=== PATIENT | female | born 1960 | race Caucasian/White ===

== ENCOUNTER 2017-09-25 20:15 | Emergency (ER) | payer MEDICAID ==
[~2017-09-25] VITALS: Ht 175.3 cm; Wt 96.4 kg
[~2017-09-25 20:15] MED LIST: ASPI-515 PO; ATOR80TA PO; ESOM40CA PO; INSU100V12 SC; LISI-170 PO; NITR100C56 PO; ROPI1TAB PO
[2017-09-25 20:20] VITALS: BP 150/75
== END 2017-09-25 23:30 | disposition left against medical advice (07) ==
LOC: ED 23:24
DX: R53.1 Weakness (principal); M54.9 Dorsalgia, unspecified; R10.9 Unspecified abdominal pain; Z53.21 Procedure and treatment not carried out due to patient leaving prior to being seen by health care provider

== ENCOUNTER 2018-02-01 13:37 | Emergency (ER) | payer MEDICAID ==
[~2018-02-01] VITALS: Ht 175.3 cm; Wt 95.0 kg
[~2018-02-01 13:37] MED LIST changes: +AMLO5TAB2 PO; +LIDO700A20 TD; +LISI2.5T PO; +METH500T7 PO; +[UNRECOGNIZED DRUG - OTHER]
[2018-02-01 13:51] VITALS: BP 191/92
[2018-02-01] MEDS ORDERED: SODIUM CHLORIDE FLUSH 10ML SYR IVF ONE (14:00)
[2018-02-01] MEDS ORDERED: FAMOTIDINE 20 MG/2 ML IVP ONE (14:00)
[2018-02-01] MEDS ORDERED: FAMOTIDINE 20 MG/2 ML ONE (14:32)
[2018-02-01] MEDS ORDERED: ZIPRASIDONE 20 MG INJ IM ONE ×2 (14:32→15:00)
[2018-02-01 14:36] LABS: BASOPHILS # (AUTO) 0.04 x10^3/uL (0-0.1); BASOPHILS % (AUTO) 0 % (0-1); EOSINOPHILS # (AUTO) 0.07 x10^3/uL (0-0.4); EOSINOPHILS % (AUTO) 1 % (1-7); LYMPHOCYTES # (AUTO) 3.54 x10^3/uL (1-3.4); LYMPHOCYTES % (AUTO) 32 % (22-44); MD NO; MEAN CORPUSCULAR HEMOGLOBIN 31.7 pg (27.0-34.8); MEAN CORPUSCULAR HGB CONC 34.2 g/dL (32.4-35.8); MEAN CORPUSCULAR VOLUME 92.6 fL (80-100); MEAN PLATELET VOLUME 9.3 fL (7.4-10.4); MONOCYTES # (AUTO) 0.45 x10^3/uL (0.2-0.8); MONOCYTES % (AUTO) 4 % (2-9); NEUTROPHILS # (AUTO) 6.87 x10^3/uL (1.8-6.8); NEUTROPHILS % (AUTO) 63 % (42-75); PLATELET COUNT 313 x10^3/uL (130-400); RED BLOOD COUNT 4.84 x10^6/uL (3.82-5.3); RED CELL DISTRIBUTION WIDTH 12.6 % (9.6-15.2)
[2018-02-01 14:42] LABS: ALBUMIN 2.8 g/dL (3.4-5.0); ANION GAP 11 mmol/L (5-15); CHLORIDE 105 mmol/L (98-107)
[2018-02-01 14:45] LABS: ALANINE AMINOTRANSFERASE 25 U/L (12-78); ALKALINE PHOSPHATASE 125 U/L (45-117); BILIRUBIN,TOTAL 0.4 mg/dL (0.2-1.0); CREATININE 1.95 mg/dL (0.55-1.02); TOTAL PROTEIN 7.4 g/dL (6.4-8.2)
[2018-02-01] MEDS ORDERED: INSULIN REGULAR 100 UNITS/ML, 3ML VIAL ONE (14:51)
[2018-02-01] MEDS ORDERED: INSULIN REGULAR 100 UNITS/ML, 3ML VIAL SQ-INSULIN ONE (15:00)
[2018-02-01] MEDS ORDERED: INSULIN REGULAR 100 UNITS/ML, 3ML VIAL IVPush ONE (15:30)
[2018-02-01 16:24] LABS: MICROSCOPIC INDICATED
[2018-02-01 16:31] LABS: CULTURE INDICATED? NO
== END 2018-02-01 16:01 | disposition home or self-care (01) ==
LOC: ED 15:55
DX: R10.13 Epigastric pain (principal); J45.909 Unspecified asthma, uncomplicated; E11.42 Type 2 diabetes mellitus with diabetic polyneuropathy; I10 Essential (primary) hypertension; Z86.718 Personal history of other venous thrombosis and embolism; Z79.4 Long term (current) use of insulin
CPT/HCPCS: 36415; 71045; 74176; 80053; 81001; 83605; 83690; 85025; 93005; 96372; 96374; 96375; 99285; J3486; S0028

== ENCOUNTER 2018-03-17 18:48 | Inpatient (IN) | payer MEDICAID ==
[~2018-03-17] VITALS: Ht 175.3 cm; Wt 94.6 kg
[2018-03-17] MEDS ORDERED: SODIUM CHLORIDE 0.9% 1,000ML IVBOLUS ONE ×2 (19:30→21:00)
[2018-03-17] MEDS ORDERED: MORPHINE SULFATE 4 MG/ML, 1ML IVPush PRN (19:30)
[2018-03-17] MEDS ORDERED: ONDANSETRON 2MG/ML, 2ML IVPush ONE (19:30)
[2018-03-17] MEDS ORDERED: METOCLOPRAMIDE 5 MG/ML, 2ML IVPush ONE (19:30)
[2018-03-17 19:40] LABS: PH, VENOUS 7.376 pH (7.320-7.420)
[2018-03-17 19:50] LABS: BASOPHILS # (AUTO) 0.03 x10^3/uL (0-0.1); BASOPHILS % (AUTO) 0 % (0-1); EOSINOPHILS % (AUTO) 0 % (1-7); LYMPHOCYTES # (AUTO) 1.68 x10^3/uL (1-3.4); LYMPHOCYTES % (AUTO) 13 % (22-44); MD NO; MEAN CORPUSCULAR HEMOGLOBIN 31.7 pg (27.0-34.8); MEAN CORPUSCULAR HGB CONC 34.1 g/dL (32.4-35.8); MEAN CORPUSCULAR VOLUME 92.7 fL (80-100); MEAN PLATELET VOLUME 9.1 fL (7.4-10.4); MONOCYTES # (AUTO) 0.18 x10^3/uL (0.2-0.8); MONOCYTES % (AUTO) 1 % (2-9); NEUTROPHILS # (AUTO) 11.04 x10^3/uL (1.8-6.8); NEUTROPHILS % (AUTO) 85 % (42-75); PLATELET COUNT 380 x10^3/uL (130-400); RED BLOOD COUNT 5.25 x10^6/uL (3.82-5.3); RED CELL DISTRIBUTION WIDTH 12.9 % (9.6-15.2)
[2018-03-17] MEDS ORDERED: ONDANSETRON 2MG/ML, 2ML ONE (19:51)
[2018-03-17] MEDS ORDERED: METOCLOPRAMIDE 5 MG/ML, 2ML ONE (19:51)
[2018-03-17] MEDS ORDERED: MORPHINE SULFATE 4 MG/ML, 1ML ONE (19:52)
[2018-03-17 19:53] LABS: MICROSCOPIC INDICATED
[2018-03-17 19:54] LABS: ALBUMIN 2.9 g/dL (3.4-5.0); ANION GAP 14 mmol/L (5-15); CALCIUM 9.4 mg/dL (8.5-10.1); CHLORIDE 105 mmol/L (98-107)
[2018-03-17 19:59] LABS: ALANINE AMINOTRANSFERASE 32 U/L (12-78); ALKALINE PHOSPHATASE 121 U/L (45-117); BILIRUBIN,TOTAL 0.6 mg/dL (0.2-1.0); CREATININE 1.68 mg/dL (0.55-1.02); TOTAL PROTEIN 8.1 g/dL (6.4-8.2)
[2018-03-17 20:12] LABS: CULTURE INDICATED? YES
[2018-03-17 20:25] LABS: ACETONE, SERUM Moderate(40mg/dL) mg/dL (Negative)
[2018-03-17] MEDS ORDERED: INSULIN REGULAR 100 UNITS/ML, 3ML VIAL IVPush ONE (21:00)
[2018-03-17] MEDS ORDERED: INSULIN REGULAR 100 UNITS/ML, 3ML VIAL ONE (21:25)
[2018-03-17] MEDS: ROPINIROLE 1MG TABLET PO SCH (22:00)
[2018-03-17] MEDS ORDERED: METOCLOPRAMIDE 5 MG/ML, 2ML IVPush PRN (22:30)
[2018-03-17] MEDS ORDERED: DEXTROSE 50%, 50ML SYRINGE IVPush PRN (22:30)
[2018-03-17] MEDS ORDERED: DEXTROSE 4 GM TAB.CHEW PO PRN (22:30)
[2018-03-17] MEDS ORDERED: BISACODYL 10 MG SUPP PR PRN (22:30)
[2018-03-17] MEDS ORDERED: GLUCAGON 1 MG IM PRN (22:30)
[2018-03-17 22:38] LABS: HEMOGLOBIN A1C 10.6 % (4.2-6.3)
[2018-03-17] MEDS: CEFTRIAXONE 1,000 MG in SODIUM CHLORIDE 0.9% 50 ML IV SCH (23:57)
[2018-03-18] MEDS: HEPARIN 5,000 UNITS/ML, 1ML SQ SCH ×3 (00:29→17:10)
[2018-03-18] MEDS: AMLODIPINE 5 MG TABLET PO SCH ×3 (00:30→20:21)
[2018-03-18] MEDS: INSULIN LISPRO 100 UNITS/ML, PEN SQ-INSULIN SCH ×5 (00:30→21:34)
[2018-03-18] MEDS: SODIUM CHLORIDE FLUSH 10ML SYR IVF SCH ×3 (00:31→20:22)
[2018-03-18] MEDS: SODIUM CHLORIDE 0.9% 1,000 ML IV SCH ×5 (00:32→23:57)
[2018-03-18] MEDS: ONDANSETRON 2MG/ML, 2ML IVPush PRN ×2 (01:52→08:04)
[2018-03-18] MEDS ORDERED: INSULIN LISPRO 100 UNITS/ML, PEN SQ-INSULIN ONE (02:00)
[2018-03-18 03:55] VITALS: BP 131/80
[2018-03-18 04:25] LABS: BASOPHILS # (AUTO) 0.03 x10^3/uL (0-0.1); BASOPHILS % (AUTO) 0 % (0-1); EOSINOPHILS % (AUTO) 0 % (1-7); LYMPHOCYTES # (AUTO) 3.64 x10^3/uL (1-3.4); LYMPHOCYTES % (AUTO) 25 % (22-44); MD NO; MEAN CORPUSCULAR HEMOGLOBIN 31.6 pg (27.0-34.8); MEAN PLATELET VOLUME 8.9 fL (7.4-10.4); MONOCYTES # (AUTO) 1.13 x10^3/uL (0.2-0.8); MONOCYTES % (AUTO) 8 % (2-9); NEUTROPHILS # (AUTO) 9.59 x10^3/uL (1.8-6.8); NEUTROPHILS % (AUTO) 67 % (42-75); PLATELET COUNT 389 x10^3/uL (130-400); RED BLOOD COUNT 4.79 x10^6/uL (3.82-5.3); RED CELL DISTRIBUTION WIDTH 12.9 % (9.6-15.2)
[2018-03-18 04:35] LABS: ALANINE AMINOTRANSFERASE 25 U/L (12-78); ALBUMIN 2.5 g/dL (3.4-5.0); ANION GAP 9 mmol/L (5-15); CALCIUM 8.6 mg/dL (8.5-10.1); CHLORIDE 114 mmol/L (98-107); CREATININE 1.73 mg/dL (0.55-1.02)
[2018-03-18 04:37] LABS: ALKALINE PHOSPHATASE 99 U/L (45-117); BILIRUBIN,TOTAL 0.2 mg/dL (0.2-1.0); TOTAL PROTEIN 6.9 g/dL (6.4-8.2)
[2018-03-18 07:02] VITALS: BP 180/81
[2018-03-18 07:45] LABS: MICROSCOPIC INDICATED
[2018-03-18] MEDS ORDERED: LABETALOL 5MG/ML, 20ML IVPush PRN (08:00)
[2018-03-18] MEDS: OMEPRAZOLE 20 MG CAPSULE.DR PO SCH (08:04)
[2018-03-18 08:07] LABS: CULTURE INDICATED? YES
[2018-03-18 09:26] VITALS: BP 143/79
[2018-03-18 14:11] VITALS: BP 169/83
[2018-03-18] MEDS ORDERED: PHARMACOKINETIC MONITORING MC PRN (14:30)
[2018-03-18] MEDS ORDERED: VANCOMYCIN PER PHARMACY MC PRN (14:30)
[2018-03-18] MEDS ORDERED: VANCOMYCIN 1,700 MG in SODIUM CHLORIDE 0.9% 250 ML IV SCH (14:30)
[2018-03-18] MEDS ORDERED: PHARMACOKINETIC CONSULTATION MC ONE (14:30)
[2018-03-18 19:41] VITALS: BP 133/75
[2018-03-18] MEDS: ROPINIROLE 1MG TABLET PO SCH (20:20)
[2018-03-18] MEDS: INSULIN GLARGINE 100 UNITS/ML, PEN SQ-INSULIN SCH (21:33)
[2018-03-18] MEDS: CEFTRIAXONE 1,000 MG in SODIUM CHLORIDE 0.9% 50 ML IV SCH (23:54)
[2018-03-19] MEDS: HEPARIN 5,000 UNITS/ML, 1ML SQ SCH ×4 (00:02→23:58)
[2018-03-19 00:57] VITALS: BP 163/88
[2018-03-19 05:06] LABS: MEAN CORPUSCULAR HEMOGLOBIN 31.7 pg (27.0-34.8); MEAN CORPUSCULAR VOLUME 93.3 fL (80-100); MEAN PLATELET VOLUME 9.5 fL (7.4-10.4); PLATELET COUNT 244 x10^3/uL (130-400); RED BLOOD COUNT 3.94 x10^6/uL (3.82-5.3); RED CELL DISTRIBUTION WIDTH 12.9 % (9.6-15.2)
[2018-03-19 05:28] LABS: ANION GAP 8 mmol/L (5-15); CALCIUM 7.6 mg/dL (8.5-10.1); CHLORIDE 115 mmol/L (98-107)
[2018-03-19 05:30] LABS: CREATININE 1.17 mg/dL (0.55-1.02)
[2018-03-19 05:32] LABS: BASOPHILS # (AUTO) 0.08 x10^3/uL (0-0.1); BASOPHILS % (AUTO) 1 % (0-1); EOSINOPHILS # (AUTO) 0.17 x10^3/uL (0-0.4); EOSINOPHILS % (AUTO) 1 % (1-7); LYMPHOCYTES # (AUTO) 5.05 x10^3/uL (1-3.4); LYMPHOCYTES % (AUTO) 43 % (22-44); MD SCAN; MONOCYTES % (AUTO) 5 % (2-9); NEUTROPHILS # (AUTO) 5.96 x10^3/uL (1.8-6.8); NEUTROPHILS % (AUTO) 50 % (42-75)
[2018-03-19] MEDS: INSULIN LISPRO 100 UNITS/ML, PEN SQ-INSULIN SCH ×4 (05:40→22:23)
[2018-03-19] MEDS: SODIUM CHLORIDE 0.9% 1,000 ML IV SCH ×3 (05:40→23:58)
[2018-03-19 07:01] VITALS: BP 177/91
[2018-03-19] MEDS: SODIUM CHLORIDE FLUSH 10ML SYR IVF SCH ×2 (07:56→20:59)
[2018-03-19] MEDS: AMLODIPINE 5 MG TABLET PO SCH ×2 (08:33→20:59)
[2018-03-19] MEDS: OMEPRAZOLE 20 MG CAPSULE.DR PO SCH (08:34)
[2018-03-19] MEDS ORDERED: hydrALAzine 20 MG/ML, 1ML IV PRN (09:00)
[2018-03-19] MEDS ORDERED: GABA-826 PO (09:11)
[2018-03-19 10:17] VITALS: BP 146/84
[2018-03-19] MEDS: VANCOMYCIN 1,800 MG in SODIUM CHLORIDE 0.9% 250 ML IV SCH (12:22)
[2018-03-19 13:05] VITALS: BP 132/71
[2018-03-19] MEDS: HYDROcodone/APAP 5/325 TABLET PO PRN ×2 (16:51→23:58)
[2018-03-19 19:19] VITALS: BP 159/80
[2018-03-19] MEDS: ROPINIROLE 1MG TABLET PO SCH (20:52)
[2018-03-19] MEDS: INSULIN GLARGINE 100 UNITS/ML, PEN SQ-INSULIN SCH (22:23)
[2018-03-19] MEDS: CEFTRIAXONE 1,000 MG in SODIUM CHLORIDE 0.9% 50 ML IV SCH (23:58)
[2018-03-20 01:25] VITALS: BP 165/81
[2018-03-20] MEDS: INSULIN LISPRO 100 UNITS/ML, PEN SQ-INSULIN SCH ×4 (04:30→20:53)
[2018-03-20 05:18] LABS: ANION GAP 6 mmol/L (5-15); CALCIUM 7.7 mg/dL (8.5-10.1); CHLORIDE 114 mmol/L (98-107)
[2018-03-20 05:19] LABS: BASOPHILS # (AUTO) 0.05 x10^3/uL (0-0.1); BASOPHILS % (AUTO) 1 % (0-1); CREATININE 1.23 mg/dL (0.55-1.02); EOSINOPHILS # (AUTO) 0.14 x10^3/uL (0-0.4); EOSINOPHILS % (AUTO) 2 % (1-7); LYMPHOCYTES # (AUTO) 3.75 x10^3/uL (1-3.4); LYMPHOCYTES % (AUTO) 43 % (22-44); MD NO; MEAN CORPUSCULAR HEMOGLOBIN 31.5 pg (27.0-34.8); MEAN CORPUSCULAR VOLUME 92.8 fL (80-100); MEAN PLATELET VOLUME 9.3 fL (7.4-10.4); MONOCYTES # (AUTO) 0.57 x10^3/uL (0.2-0.8); MONOCYTES % (AUTO) 6 % (2-9); NEUTROPHILS # (AUTO) 4.31 x10^3/uL (1.8-6.8); NEUTROPHILS % (AUTO) 49 % (42-75); PLATELET COUNT 225 x10^3/uL (130-400); RED BLOOD COUNT 4.15 x10^6/uL (3.82-5.3); RED CELL DISTRIBUTION WIDTH 12.6 % (9.6-15.2)
[2018-03-20] MEDS: VANCOMYCIN 1,800 MG in SODIUM CHLORIDE 0.9% 250 ML IV SCH (06:16)
[2018-03-20 06:40] VITALS: BP 158/76
[2018-03-20] MEDS ORDERED: SODIUM CHLORIDE 0.9% 1,000 ML IV SCH (08:00)
[2018-03-20] MEDS: HEPARIN 5,000 UNITS/ML, 1ML SQ SCH ×2 (08:12→16:38)
[2018-03-20] MEDS: ZONISAMIDE 50 MG CAPSULE PO SCH (08:13)
[2018-03-20] MEDS: AMLODIPINE 5 MG TABLET PO SCH ×2 (08:14→20:18)
[2018-03-20] MEDS: OMEPRAZOLE 20 MG CAPSULE.DR PO SCH (08:14)
[2018-03-20] MEDS: SODIUM CHLORIDE 0.9% 1,000 ML IV SCH ×2 (08:15→16:39)
[2018-03-20] MEDS: SODIUM CHLORIDE FLUSH 10ML SYR IVF SCH ×2 (08:16→20:19)
[2018-03-20] MEDS: HYDROcodone/APAP 5/325 TABLET PO PRN (08:22)
[2018-03-20] MEDS ORDERED: FLUCONAZOLE 200 MG/100 ML 100 ML IV SCH ×2 (10:00)
[2018-03-20] MEDS ORDERED: LORazepam 2 MG/ML, 1ML IVPush PRN (10:00)
[2018-03-20] MEDS: POLYETHYLENE GLYCOL 17 GM PACKET PO SCH (10:00)
[2018-03-20] MEDS: OXYcodone/APAP 7.5/325MG TABLET PO PRN ×3 (11:00→20:53)
[2018-03-20] MEDS ORDERED: PHARMACY INSTRUCTION MC SCH (12:00)
[2018-03-20] MEDS: ERTAPENEM 1 GM in SODIUM CHLORIDE 0.9% 50 ML IV SCH (13:19)
[2018-03-20 14:24] VITALS: BP 158/75
[2018-03-20 19:30] VITALS: BP 170/84
[2018-03-20] MEDS: ROPINIROLE 1MG TABLET PO SCH ×2 (20:18→21:00)
[2018-03-20] MEDS: INSULIN GLARGINE 100 UNITS/ML, PEN SQ-INSULIN SCH (20:53)
[2018-03-20] MEDS: CLOTRIMAZOLE VAGINAL CRM 1%, 45GM VG SCH (20:53)
[2018-03-21] MEDS: SODIUM CHLORIDE 0.9% 1,000 ML IV SCH ×3 (00:47→23:00)
[2018-03-21] MEDS: HEPARIN 5,000 UNITS/ML, 1ML SQ SCH ×3 (00:48→17:35)
[2018-03-21 00:51] VITALS: BP 152/74
[2018-03-21] MEDS: OXYcodone/APAP 7.5/325MG TABLET PO PRN ×5 (01:00→21:59)
[2018-03-21 05:18] LABS: ANION GAP 7 mmol/L (5-15); CALCIUM 7.7 mg/dL (8.5-10.1); CHLORIDE 113 mmol/L (98-107)
[2018-03-21 05:20] LABS: CREATININE 1.36 mg/dL (0.55-1.02)
[2018-03-21] MEDS: INSULIN LISPRO 100 UNITS/ML, PEN SQ-INSULIN SCH ×4 (05:29→22:17)
[2018-03-21 08:30] VITALS: BP 146/76
[2018-03-21] MEDS: AMLODIPINE 5 MG TABLET PO SCH ×2 (08:35→21:58)
[2018-03-21] MEDS: ZONISAMIDE 50 MG CAPSULE PO SCH (08:35)
[2018-03-21] MEDS: OMEPRAZOLE 20 MG CAPSULE.DR PO SCH (08:35)
[2018-03-21] MEDS: POLYETHYLENE GLYCOL 17 GM PACKET PO SCH (08:37)
[2018-03-21] MEDS: SODIUM CHLORIDE FLUSH 10ML SYR IVF SCH ×2 (08:37→21:00)
[2018-03-21 14:30] VITALS: BP 146/78
[2018-03-21] MEDS ORDERED: LIDOCAINE-MPF 1%, 2ML ONE (15:09)
[2018-03-21] MEDS: ERTAPENEM 1 GM in SODIUM CHLORIDE 0.9% 50 ML IV SCH (17:35)
[2018-03-21 19:29] VITALS: BP 157/77
[2018-03-21] MEDS: CLOTRIMAZOLE VAGINAL CRM 1%, 45GM VG SCH (21:00)
[2018-03-21] MEDS: ROPINIROLE 1MG TABLET PO SCH (21:00)
[2018-03-21] MEDS: INSULIN GLARGINE 100 UNITS/ML, PEN SQ-INSULIN SCH (22:16)
[2018-03-22] MEDS: HEPARIN 5,000 UNITS/ML, 1ML SQ SCH ×3 (00:30→17:40)
[2018-03-22 01:56] VITALS: BP 181/75
[2018-03-22 02:26] VITALS: BP 178/74
[2018-03-22] MEDS: OXYcodone/APAP 7.5/325MG TABLET PO PRN ×4 (02:40→19:38)
[2018-03-22] MEDS: INSULIN LISPRO 100 UNITS/ML, PEN SQ-INSULIN SCH ×4 (05:19→21:12)
[2018-03-22] MEDS: SODIUM CHLORIDE 0.9% 1,000 ML IV SCH (07:00)
[2018-03-22 07:50] VITALS: BP 134/67
[2018-03-22] MEDS: ZONISAMIDE 50 MG CAPSULE PO SCH (07:51)
[2018-03-22] MEDS: AMLODIPINE 5 MG TABLET PO SCH ×2 (07:51→21:11)
[2018-03-22] MEDS: POLYETHYLENE GLYCOL 17 GM PACKET PO SCH (07:52)
[2018-03-22] MEDS: SODIUM CHLORIDE FLUSH 10ML SYR IVF SCH ×2 (07:57→21:10)
[2018-03-22] MEDS: OMEPRAZOLE 20 MG CAPSULE.DR PO SCH (08:00)
[2018-03-22 14:30] VITALS: BP 125/76
[2018-03-22] MEDS: ERTAPENEM 1 GM in SODIUM CHLORIDE 0.9% 50 ML IV SCH (17:39)
[2018-03-22] MEDS: METOPROLOL TARTRATE 50 MG TABLET PO SCH (17:40)
[2018-03-22 20:08] VITALS: BP 112/68
[2018-03-22 21:09] VITALS: BP 116/68
[2018-03-22] MEDS: INSULIN GLARGINE 100 UNITS/ML, PEN SQ-INSULIN SCH (21:12)
[2018-03-23 00:52] VITALS: BP 124/70
[2018-03-23] MEDS: HEPARIN 5,000 UNITS/ML, 1ML SQ SCH ×3 (01:08→16:31)
[2018-03-23] MEDS: OXYcodone/APAP 7.5/325MG TABLET PO PRN ×5 (01:08→22:23)
[2018-03-23 05:29] VITALS: BP 143/74
[2018-03-23] MEDS: METOPROLOL TARTRATE 50 MG TABLET PO SCH ×2 (05:31→17:49)
[2018-03-23 05:57] LABS: ANION GAP 9 mmol/L (5-15); CALCIUM 8.4 mg/dL (8.5-10.1); CHLORIDE 112 mmol/L (98-107)
[2018-03-23 05:58] LABS: CREATININE 1.42 mg/dL (0.55-1.02)
[2018-03-23] MEDS: INSULIN LISPRO 100 UNITS/ML, PEN SQ-INSULIN SCH ×4 (07:00→21:07)
[2018-03-23 07:31] VITALS: BP 106/62
[2018-03-23] MEDS: POLYETHYLENE GLYCOL 17 GM PACKET PO SCH (08:02)
[2018-03-23] MEDS: AMLODIPINE 5 MG TABLET PO SCH ×2 (08:05→21:07)
[2018-03-23] MEDS: SODIUM CHLORIDE FLUSH 10ML SYR IVF SCH ×2 (08:05→21:11)
[2018-03-23] MEDS: OMEPRAZOLE 20 MG CAPSULE.DR PO SCH (08:05)
[2018-03-23] MEDS: ZONISAMIDE 50 MG CAPSULE PO SCH (08:11)
[2018-03-23 15:30] VITALS: BP 118/75
[2018-03-23] MEDS: ERTAPENEM 1 GM in SODIUM CHLORIDE 0.9% 50 ML IV SCH (17:50)
[2018-03-23 19:23] VITALS: BP 125/73
[2018-03-23] MEDS: INSULIN GLARGINE 100 UNITS/ML, PEN SQ-INSULIN SCH (21:08)
[2018-03-24] MEDS: HEPARIN 5,000 UNITS/ML, 1ML SQ SCH ×3 (00:30→16:39)
[2018-03-24 02:51] VITALS: BP 125/72
[2018-03-24] MEDS: OXYcodone/APAP 7.5/325MG TABLET PO PRN ×5 (04:18→21:17)
[2018-03-24] MEDS: METOPROLOL TARTRATE 50 MG TABLET PO SCH ×2 (05:58→18:00)
[2018-03-24 07:34] VITALS: BP 123/70
[2018-03-24] MEDS: SODIUM CHLORIDE FLUSH 10ML SYR IVF SCH ×2 (08:17→21:18)
[2018-03-24] MEDS: POLYETHYLENE GLYCOL 17 GM PACKET PO SCH (08:18)
[2018-03-24] MEDS: ZONISAMIDE 50 MG CAPSULE PO SCH (08:19)
[2018-03-24] MEDS: OMEPRAZOLE 20 MG CAPSULE.DR PO SCH (08:19)
[2018-03-24] MEDS: AMLODIPINE 5 MG TABLET PO SCH ×3 (08:19→21:17)
[2018-03-24] MEDS: INSULIN LISPRO 100 UNITS/ML, PEN SQ-INSULIN SCH ×4 (09:34→21:59)
[2018-03-24] MEDS: INSULIN GLARGINE 100 UNITS/ML, PEN SQ-INSULIN SCH ×2 (09:34→21:59)
[2018-03-24] MEDS ORDERED: METO50TA82 PO (11:48)
[2018-03-24 12:45] VITALS: BP 123/70
[2018-03-24] MEDS: ERTAPENEM 1 GM in SODIUM CHLORIDE 0.9% 50 ML IV SCH (18:18)
[2018-03-24 19:59] VITALS: BP 142/69
[2018-03-25] MEDS: HEPARIN 5,000 UNITS/ML, 1ML SQ SCH ×3 (00:30→16:26)
[2018-03-25 00:57] VITALS: BP 135/75
[2018-03-25] MEDS: OXYcodone/APAP 7.5/325MG TABLET PO PRN ×4 (01:06→20:54)
[2018-03-25 05:21] LABS: ANION GAP 7 mmol/L (5-15); CALCIUM 8.6 mg/dL (8.5-10.1); CHLORIDE 112 mmol/L (98-107); CREATININE 1.76 mg/dL (0.55-1.02)
[2018-03-25] MEDS: METOPROLOL TARTRATE 50 MG TABLET PO SCH ×2 (06:22→17:50)
[2018-03-25 08:03] VITALS: BP 123/67
[2018-03-25] MEDS: POLYETHYLENE GLYCOL 17 GM PACKET PO SCH (08:22)
[2018-03-25] MEDS: ONDANSETRON 2MG/ML, 2ML IVPush PRN (08:28)
[2018-03-25] MEDS: SODIUM CHLORIDE FLUSH 10ML SYR IVF SCH ×2 (08:31→20:55)
[2018-03-25] MEDS: ZONISAMIDE 50 MG CAPSULE PO SCH (08:31)
[2018-03-25] MEDS: AMLODIPINE 5 MG TABLET PO SCH ×2 (08:31→20:54)
[2018-03-25] MEDS: OMEPRAZOLE 20 MG CAPSULE.DR PO SCH (08:31)
[2018-03-25] MEDS: INSULIN LISPRO 100 UNITS/ML, PEN SQ-INSULIN SCH ×4 (08:34→20:54)
[2018-03-25] MEDS: INSULIN GLARGINE 100 UNITS/ML, PEN SQ-INSULIN SCH ×2 (08:34→20:55)
[2018-03-25 14:17] VITALS: BP 130/71
[2018-03-25] MEDS: ERTAPENEM 1 GM in SODIUM CHLORIDE 0.9% 50 ML IV SCH (19:00)
[2018-03-25 20:00] VITALS: BP 117/71
[2018-03-26] MEDS: HEPARIN 5,000 UNITS/ML, 1ML SQ SCH ×3 (00:30→16:59)
[2018-03-26 01:54] VITALS: BP 148/83
[2018-03-26] MEDS: OXYcodone/APAP 7.5/325MG TABLET PO PRN ×5 (03:40→20:59)
[2018-03-26 05:22] LABS: ANION GAP 7 mmol/L (5-15); CALCIUM 8.6 mg/dL (8.5-10.1); CHLORIDE 113 mmol/L (98-107)
[2018-03-26] MEDS: METOPROLOL TARTRATE 50 MG TABLET PO SCH ×2 (06:04→16:49)
[2018-03-26] MEDS: INSULIN LISPRO 100 UNITS/ML, PEN SQ-INSULIN SCH ×4 (07:00→21:13)
[2018-03-26 08:09] VITALS: BP 108/63
[2018-03-26] MEDS: POLYETHYLENE GLYCOL 17 GM PACKET PO SCH (09:00)
[2018-03-26] MEDS: OMEPRAZOLE 20 MG CAPSULE.DR PO SCH (09:14)
[2018-03-26] MEDS: ZONISAMIDE 50 MG CAPSULE PO SCH (09:14)
[2018-03-26] MEDS: AMLODIPINE 5 MG TABLET PO SCH ×2 (09:15→20:59)
[2018-03-26] MEDS: INSULIN GLARGINE 100 UNITS/ML, PEN SQ-INSULIN SCH ×2 (09:17→21:14)
[2018-03-26 13:09] VITALS: BP 120/67
[2018-03-26] MEDS: SODIUM CHLORIDE FLUSH 10ML SYR IVF SCH ×2 (16:50→21:00)
[2018-03-26] MEDS: ERTAPENEM 1 GM in SODIUM CHLORIDE 0.9% 50 ML IV SCH (18:27)
[2018-03-26 19:05] VITALS: BP 116/68
[2018-03-27] MEDS: HEPARIN 5,000 UNITS/ML, 1ML SQ SCH ×3 (00:30→17:38)
[2018-03-27] MEDS: OXYcodone/APAP 7.5/325MG TABLET PO PRN ×4 (00:30→20:35)
[2018-03-27 01:55] VITALS: BP 112/60
[2018-03-27] MEDS: METOPROLOL TARTRATE 50 MG TABLET PO SCH ×2 (06:00→17:39)
[2018-03-27] MEDS: ONDANSETRON 2MG/ML, 2ML IVPush PRN (06:15)
[2018-03-27] MEDS: INSULIN LISPRO 100 UNITS/ML, PEN SQ-INSULIN SCH ×4 (07:00→20:48)
[2018-03-27 08:24] VITALS: BP 120/67
[2018-03-27] MEDS: AMLODIPINE 5 MG TABLET PO SCH ×2 (09:00→20:35)
[2018-03-27] MEDS: ZONISAMIDE 50 MG CAPSULE PO SCH (09:00)
[2018-03-27] MEDS: POLYETHYLENE GLYCOL 17 GM PACKET PO SCH (09:00)
[2018-03-27] MEDS: OMEPRAZOLE 20 MG CAPSULE.DR PO SCH (11:09)
[2018-03-27] MEDS: INSULIN GLARGINE 100 UNITS/ML, PEN SQ-INSULIN SCH ×2 (11:15→20:49)
[2018-03-27] MEDS: SODIUM CHLORIDE FLUSH 10ML SYR IVF SCH ×2 (11:24→20:35)
[2018-03-27 12:43] VITALS: BP 104/60
[2018-03-27] MEDS: ERTAPENEM 1 GM in SODIUM CHLORIDE 0.9% 50 ML IV SCH (17:39)
[2018-03-27 20:29] VITALS: BP 115/59
[2018-03-28] MEDS: HEPARIN 5,000 UNITS/ML, 1ML SQ SCH ×3 (00:30→17:03)
[2018-03-28 03:00] VITALS: BP 121/74
[2018-03-28] MEDS: OXYcodone/APAP 7.5/325MG TABLET PO PRN ×5 (03:04→23:40)
[2018-03-28] MEDS: METOPROLOL TARTRATE 50 MG TABLET PO SCH ×2 (05:26→17:47)
[2018-03-28 07:50] VITALS: BP 117/70
[2018-03-28] MEDS: INSULIN LISPRO 100 UNITS/ML, PEN SQ-INSULIN SCH ×4 (08:52→21:09)
[2018-03-28] MEDS: INSULIN GLARGINE 100 UNITS/ML, PEN SQ-INSULIN SCH ×2 (08:53→21:09)
[2018-03-28] MEDS: ZONISAMIDE 50 MG CAPSULE PO SCH (08:54)
[2018-03-28] MEDS: OMEPRAZOLE 20 MG CAPSULE.DR PO SCH (08:56)
[2018-03-28] MEDS: AMLODIPINE 5 MG TABLET PO SCH ×2 (09:00→21:00)
[2018-03-28] MEDS: POLYETHYLENE GLYCOL 17 GM PACKET PO SCH (09:01)
[2018-03-28] MEDS: SODIUM CHLORIDE FLUSH 10ML SYR IVF SCH ×2 (09:02→21:08)
[2018-03-28 12:38] VITALS: BP 123/69
[2018-03-28] MEDS: ERTAPENEM 1 GM in SODIUM CHLORIDE 0.9% 50 ML IV SCH (14:03)
[2018-03-28 21:43] VITALS: BP 128/71
[2018-03-29] MEDS: HEPARIN 5,000 UNITS/ML, 1ML SQ SCH ×2 (00:30→08:21)
[2018-03-29] MEDS: METOPROLOL TARTRATE 50 MG TABLET PO SCH (03:45)
[2018-03-29 03:50] VITALS: BP 128/77
[2018-03-29] MEDS: OXYcodone/APAP 7.5/325MG TABLET PO PRN (05:32)
[2018-03-29] MEDS: ERTAPENEM 1 GM in SODIUM CHLORIDE 0.9% 50 ML IV SCH (08:20)
[2018-03-29] MEDS: ZONISAMIDE 50 MG CAPSULE PO SCH (08:21)
[2018-03-29] MEDS: INSULIN LISPRO 100 UNITS/ML, PEN SQ-INSULIN SCH (08:21)
[2018-03-29] MEDS: OMEPRAZOLE 20 MG CAPSULE.DR PO SCH (08:21)
[2018-03-29] MEDS: SODIUM CHLORIDE FLUSH 10ML SYR IVF SCH (08:22)
[2018-03-29] MEDS: POLYETHYLENE GLYCOL 17 GM PACKET PO SCH (08:22)
[2018-03-29 08:26] VITALS: BP 139/77
[2018-03-29] MEDS: AMLODIPINE 5 MG TABLET PO SCH (08:44)
[2018-03-29] MEDS: INSULIN GLARGINE 100 UNITS/ML, PEN SQ-INSULIN SCH (08:45)
[2018-03-29] MEDS ORDERED: GEMF600T3 PO (08:54)
== END 2018-03-29 09:55 | disposition home or self-care (01) | DRG 871 ==
LOC: ED 21:49 → EDIP 22:02 → 3NW 22:48 → 3NE 03-21 14:46
PROVIDERS: ADMIT Hospitalist; ATTEND Internal Medicine
PROC: 0T9B70Z Drainage of Bladder with Drainage Device, Via Natural or Artificial Opening (ICD-10-PCS; principal; 2018-03-18)
PROC: 02HV33Z Insertion of Infusion Device into Superior Vena Cava, Percutaneous Approach (ICD-10-PCS; 2018-03-21)
PROC: B518ZZA Fluoroscopy of Superior Vena Cava, Guidance (ICD-10-PCS; 2018-03-21)
PROC: B548ZZA Ultrasonography of Superior Vena Cava, Guidance (ICD-10-PCS; 2018-03-21)
DX: A41.9 Sepsis, unspecified organism (principal); E43 Unspecified severe protein-calorie malnutrition; N17.0 Acute kidney failure with tubular necrosis; E87.3 Alkalosis; N39.0 Urinary tract infection, site not specified; L29.9 Pruritus, unspecified; B37.3 Candidiasis of vulva and vagina; D75.1 Secondary polycythemia; E11.21 Type 2 diabetes mellitus with diabetic nephropathy; E11.43 Type 2 diabetes mellitus with diabetic autonomic (poly)neuropathy; K31.84 Gastroparesis; E66.9 Obesity, unspecified; E78.1 Pure hyperglyceridemia; G40.909 Epilepsy, unspecified, not intractable, without status epilepticus; G47.30 Sleep apnea, unspecified; I10 Essential (primary) hypertension; J45.909 Unspecified asthma, uncomplicated; K21.9 Gastro-esophageal reflux disease without esophagitis; B96.89 Other specified bacterial agents as the cause of diseases classified elsewhere; E11.65 Type 2 diabetes mellitus with hyperglycemia; Z79.4 Long term (current) use of insulin; Z68.30 Body mass index [BMI] 30.0-30.9, adult; Z82.49 Family history of ischemic heart disease and other diseases of the circulatory system; Z83.3 Family history of diabetes mellitus; Z86.711 Personal history of pulmonary embolism; Z86.718 Personal history of other venous thrombosis and embolism; Z86.73 Personal history of transient ischemic attack (TIA), and cerebral infarction without residual deficits; Z90.710 Acquired absence of both cervix and uterus; Z90.49 Acquired absence of other specified parts of digestive tract; Z88.5 Allergy status to narcotic agent
CPT/HCPCS: 36415; 36569; 71045; 74176; 76770; 76937; 77001; 80048; 80053; 81001; 82010; 82436; 82570; 82803; 82947; 82962; 83036; 83690; 83735; 84133; 84300; 85025; 87040; 87077; 87086; 87186; 93005; 96361; 96374; 96375; 99285; J0696; J1335; J1644; J2405; J3370; J3490; C1751; J0360; J1450; J1815; J2765; J7030; J7050

== ENCOUNTER 2018-05-21 18:07 | Inpatient (IN) | payer MEDICAID ==
[~2018-05-21] VITALS: Ht 175.3 cm; Wt 93.5 kg
[~2018-05-21 18:07] MED LIST changes: -AMLO5TAB2 PO; +AMLO5TAB7 PO; +GABA-826 PO; +GEMF600T4 PO; +METO50TA82 PO
[2018-05-21] MEDS ORDERED: MIRT30TA6 PO (18:21)
[2018-05-21] MEDS ORDERED: ZONI100C2 PO (18:22)
[2018-05-21] MEDS ORDERED: METO5TAB57 PO (18:23)
[2018-05-21] MEDS ORDERED: SODIUM CHLORIDE FLUSH 10ML SYR IVF ONE (18:30)
[2018-05-21] MEDS ORDERED: METOCLOPRAMIDE 5 MG/ML, 2ML IVPush ONE (18:30)
[2018-05-21] MEDS ORDERED: SODIUM CHLORIDE 0.9% 1,000ML IVBOLUS ONE ×2 (18:30→20:00)
[2018-05-21] MEDS ORDERED: FAMOTIDINE 20 MG/2 ML IVP ONE (18:30)
[2018-05-21 18:46] LABS: BASOPHILS % (AUTO) 0 % (0-1); EOSINOPHILS % (AUTO) 0 % (1-7); LYMPHOCYTES # (AUTO) 2.38 x10^3/uL (1-3.4); LYMPHOCYTES % (AUTO) 20 % (22-44); MD NO; MEAN CORPUSCULAR HEMOGLOBIN 30.8 pg (27.0-34.8); MEAN CORPUSCULAR HGB CONC 33.8 g/dL (32.4-35.8); MEAN CORPUSCULAR VOLUME 91.1 fL (80-100); MEAN PLATELET VOLUME 8.8 fL (7.4-10.4); MONOCYTES # (AUTO) 0.15 x10^3/uL (0.2-0.8); MONOCYTES % (AUTO) 1 % (2-9); NEUTROPHILS # (AUTO) 9.66 x10^3/uL (1.8-6.8); NEUTROPHILS % (AUTO) 79 % (42-75); PLATELET COUNT 402 x10^3/uL (130-400); RED BLOOD COUNT 4.97 x10^6/uL (3.82-5.3); RED CELL DISTRIBUTION WIDTH 13.1 % (9.6-15.2)
[2018-05-21] MEDS ORDERED: FAMOTIDINE 20 MG/2 ML ONE (18:56)
[2018-05-21] MEDS ORDERED: METOCLOPRAMIDE 5 MG/ML, 2ML ONE (18:56)
[2018-05-21 18:58] LABS: ALANINE AMINOTRANSFERASE 20 U/L (12-78); ALBUMIN 2.5 g/dL (3.4-5.0); ANION GAP 14 mmol/L (5-15); CALCIUM 9.1 mg/dL (8.5-10.1); CHLORIDE 105 mmol/L (98-107); CREATININE 1.68 mg/dL (0.55-1.02)
[2018-05-21 19:01] LABS: ALKALINE PHOSPHATASE 136 U/L (45-117); BILIRUBIN,TOTAL 0.4 mg/dL (0.2-1.0); TOTAL PROTEIN 7.5 g/dL (6.4-8.2)
[2018-05-21 19:28] LABS: ACETONE, SERUM Moderate(40mg/dL) mg/dL (Negative)
[2018-05-21 19:44] LABS: MICROSCOPIC INDICATED
[2018-05-21] MEDS ORDERED: INSULIN REGULAR 100 UNITS/ML, 3ML VIAL ONE (19:49)
[2018-05-21 19:54] LABS: CULTURE INDICATED? YES
[2018-05-21] MEDS ORDERED: ZIPRASIDONE 20 MG INJ IM ONE ×2 (19:59→20:00)
[2018-05-21] MEDS ORDERED: INSULIN REGULAR 100 UNITS/ML, 3ML VIAL SQ-INSULIN SCH (20:00)
[2018-05-21] MEDS ORDERED: LABETALOL 5MG/ML, 20ML ONE (20:49)
[2018-05-21] MEDS ORDERED: LABETALOL 5MG/ML, 20ML IVPush ONE (21:00)
[2018-05-21] MEDS ORDERED: LIDODERM 5% PATCH TD PRN (22:30)
[2018-05-21 22:49] VITALS: BP 181/93
[2018-05-21] MEDS: SODIUM CHLORIDE 0.9% 1,000 ML IV SCH (23:09)
[2018-05-21] MEDS: HEPARIN 5,000 UNITS/ML, 1ML SQ SCH (23:09)
[2018-05-21] MEDS: hydrALAzine 20 MG/ML, 1ML IVPush PRN (23:18)
[2018-05-21] MEDS: PROMETHAZINE 25 MG/ML, 1ML IM PRN (23:22)
[2018-05-22 01:29] VITALS: BP 164/91
[2018-05-22 05:44] LABS: CHLORIDE 111 mmol/L (98-107)
[2018-05-22 05:47] LABS: BASOPHILS # (AUTO) 0.02 x10^3/uL (0-0.1); BASOPHILS % (AUTO) 0 % (0-1); EOSINOPHILS % (AUTO) 0 % (1-7); LYMPHOCYTES # (AUTO) 2.34 x10^3/uL (1-3.4); LYMPHOCYTES % (AUTO) 19 % (22-44); MD NO; MEAN CORPUSCULAR HEMOGLOBIN 30.8 pg (27.0-34.8); MEAN CORPUSCULAR HGB CONC 33.7 g/dL (32.4-35.8); MEAN CORPUSCULAR VOLUME 91.7 fL (80-100); MEAN PLATELET VOLUME 9.3 fL (7.4-10.4); MONOCYTES % (AUTO) 3 % (2-9); NEUTROPHILS # (AUTO) 9.71 x10^3/uL (1.8-6.8); NEUTROPHILS % (AUTO) 78 % (42-75); PLATELET COUNT 305 x10^3/uL (130-400); RED BLOOD COUNT 4.75 x10^6/uL (3.82-5.3); RED CELL DISTRIBUTION WIDTH 13.3 % (9.6-15.2)
[2018-05-22 06:04] LABS: ANION GAP 14 mmol/L (5-15); CALCIUM 8.5 mg/dL (8.5-10.1); CREATININE 1.41 mg/dL (0.55-1.02)
[2018-05-22] MEDS: METOPROLOL TARTRATE 50 MG TABLET PO SCH ×2 (06:27→17:14)
[2018-05-22] MEDS: HEPARIN 5,000 UNITS/ML, 1ML SQ SCH ×3 (06:27→21:41)
[2018-05-22] MEDS: SODIUM CHLORIDE 0.9% 1,000 ML IV SCH ×3 (06:27→21:37)
[2018-05-22 07:24] VITALS: BP 159/89
[2018-05-22] MEDS: MIRTAZAPINE 30 MG TAB.RAPDIS PO SCH (08:33)
[2018-05-22] MEDS: AMLODIPINE 5 MG TABLET PO SCH ×2 (08:33→21:36)
[2018-05-22] MEDS: ZONISAMIDE 50 MG CAPSULE PO SCH (08:33)
[2018-05-22] MEDS: INSULIN LISPRO 100 UNITS/ML, PEN SQ-INSULIN SCH ×4 (08:36→21:00)
[2018-05-22] MEDS ORDERED: METOCLOPRAMIDE 10MG TABLET PO SCH (09:00)
[2018-05-22 09:46] LABS: CLOSTRIDIUM DIFFICILE ANTIGEN POSITIVE; CLOSTRIDIUM DIFFICILE TOXIN NEGATIVE (Negative)
[2018-05-22] MEDS ORDERED: KETOROLAC 30 MG/1 ML IVPush PRN (10:30)
[2018-05-22] MEDS ORDERED: ACETAMINOPHEN 325 MG TABLET PO PRN (10:30)
[2018-05-22 13:31] VITALS: BP 156/83
[2018-05-22] MEDS: METRONIDAZOLE PMX 500MG/100ML 100 ML IV SCH ×2 (14:05→21:36)
[2018-05-22 19:34] VITALS: BP 124/73
[2018-05-23] MEDS ORDERED: METOCLOPRAMIDE 10MG TABLET PO ONE (00:15)
[2018-05-23] MEDS: PROMETHAZINE 25 MG/ML, 1ML IM PRN ×2 (00:39→05:02)
[2018-05-23 02:25] VITALS: BP 181/92
[2018-05-23] MEDS: hydrALAzine 20 MG/ML, 1ML IVPush PRN (02:27)
[2018-05-23] MEDS ORDERED: MAALOX/HYOSCYAMINE/LIDOCAINE 45 ML BTL PO ONE (02:30)
[2018-05-23 03:00] VITALS: BP 165/85
[2018-05-23] MEDS: METRONIDAZOLE PMX 500MG/100ML 100 ML IV SCH ×2 (05:01→17:00)
[2018-05-23 06:03] LABS: ALBUMIN 2.2 g/dL (3.4-5.0); ANION GAP 12 mmol/L (5-15); CALCIUM 7.8 mg/dL (8.5-10.1); CHLORIDE 112 mmol/L (98-107)
[2018-05-23 06:07] LABS: ALANINE AMINOTRANSFERASE 15 U/L (12-78); ALKALINE PHOSPHATASE 112 U/L (45-117); BILIRUBIN,TOTAL 0.3 mg/dL (0.2-1.0); CREATININE 1.49 mg/dL (0.55-1.02); TOTAL PROTEIN 6.4 g/dL (6.4-8.2)
[2018-05-23 06:10] LABS: HEMOGLOBIN A1C 11.6 % (4.2-6.3)
[2018-05-23 06:18] LABS: BASOPHILS # (AUTO) 0.04 x10^3/uL (0-0.1); BASOPHILS % (AUTO) 0 % (0-1); EOSINOPHILS # (AUTO) 0.02 x10^3/uL (0-0.4); EOSINOPHILS % (AUTO) 0 % (1-7); LYMPHOCYTES # (AUTO) 3.08 x10^3/uL (1-3.4); LYMPHOCYTES % (AUTO) 19 % (22-44); MD NO; MEAN CORPUSCULAR HGB CONC 33.7 g/dL (32.4-35.8); MEAN CORPUSCULAR VOLUME 91.9 fL (80-100); MEAN PLATELET VOLUME 9.5 fL (7.4-10.4); MONOCYTES # (AUTO) 0.41 x10^3/uL (0.2-0.8); MONOCYTES % (AUTO) 3 % (2-9); NEUTROPHILS # (AUTO) 12.33 x10^3/uL (1.8-6.8); NEUTROPHILS % (AUTO) 78 % (42-75); PLATELET COUNT 339 x10^3/uL (130-400); RED BLOOD COUNT 4.54 x10^6/uL (3.82-5.3); RED CELL DISTRIBUTION WIDTH 13.4 % (9.6-15.2)
[2018-05-23] MEDS: METOPROLOL TARTRATE 50 MG TABLET PO SCH ×2 (06:20→17:35)
[2018-05-23] MEDS: HEPARIN 5,000 UNITS/ML, 1ML SQ SCH ×3 (06:21→23:17)
[2018-05-23] MEDS: SODIUM CHLORIDE 0.9% 1,000 ML IV SCH (06:21)
[2018-05-23] MEDS: MIRTAZAPINE 30 MG TAB.RAPDIS PO SCH (08:50)
[2018-05-23] MEDS: METOCLOPRAMIDE 10MG TABLET PO SCH ×2 (08:50→21:55)
[2018-05-23] MEDS: AMLODIPINE 5 MG TABLET PO SCH ×2 (08:51→21:55)
[2018-05-23] MEDS: ZONISAMIDE 50 MG CAPSULE PO SCH (08:51)
[2018-05-23] MEDS: INSULIN LISPRO 100 UNITS/ML, PEN SQ-INSULIN SCH ×3 (08:57→23:17)
[2018-05-23 08:59] VITALS: BP 164/87
[2018-05-23 10:03] LABS: FIO2 ROOM AIR %
[2018-05-23 11:23] VITALS: BP 159/80
[2018-05-23] MEDS: SODIUM CHLORIDE 0.45% 1,000 ML IV SCH (11:48)
[2018-05-23] MEDS ORDERED: INSULIN LISPRO 100 UNITS/ML, PEN SQ-INSULIN ONE (12:00)
[2018-05-23] MEDS ORDERED: INSULIN LISPRO 100 UNITS/ML, PEN SQ-INSULIN SCH (15:00)
[2018-05-23 15:46] VITALS: BP 137/79
[2018-05-23] MEDS ORDERED: METRONIDAZOLE PMX 500MG/100ML 100 ML IV SCH (17:00)
[2018-05-23 18:36] VITALS: BP 129/74
[2018-05-23] MEDS: INSULIN GLARGINE 100 UNITS/ML, PEN SQ-INSULIN SCH (21:56)
[2018-05-24] MEDS: METRONIDAZOLE PMX 500MG/100ML 100 ML IV SCH ×4 (01:00→22:00)
[2018-05-24 01:45] VITALS: BP 106/68
[2018-05-24] MEDS: INSULIN LISPRO 100 UNITS/ML, PEN SQ-INSULIN SCH ×5 (03:00→21:09)
[2018-05-24 04:42] LABS: MEAN CORPUSCULAR HEMOGLOBIN 30.7 pg (27.0-34.8); MEAN CORPUSCULAR HGB CONC 33.1 g/dL (32.4-35.8); MEAN CORPUSCULAR VOLUME 92.8 fL (80-100); MEAN PLATELET VOLUME 8.8 fL (7.4-10.4); PLATELET COUNT 309 x10^3/uL (130-400); RED BLOOD COUNT 4.37 x10^6/uL (3.82-5.3); RED CELL DISTRIBUTION WIDTH 13.4 % (9.6-15.2)
[2018-05-24 04:48] LABS: ANION GAP 9 mmol/L (5-15); CALCIUM 8.1 mg/dL (8.5-10.1); CHLORIDE 113 mmol/L (98-107)
[2018-05-24 04:51] LABS: CREATININE 1.48 mg/dL (0.55-1.02)
[2018-05-24 05:10] VITALS: BP 113/68
[2018-05-24 05:44] LABS: BASOPHILS # (AUTO) 0.03 x10^3/uL (0-0.1); BASOPHILS % (AUTO) 0 % (0-1); EOSINOPHILS # (AUTO) 0.13 x10^3/uL (0-0.4); EOSINOPHILS % (AUTO) 1 % (1-7); LYMPHOCYTES # (AUTO) 5.72 x10^3/uL (1-3.4); LYMPHOCYTES % (AUTO) 45 % (22-44); MD SCAN; MONOCYTES # (AUTO) 0.81 x10^3/uL (0.2-0.8); MONOCYTES % (AUTO) 6 % (2-9); NEUTROPHILS % (AUTO) 47 % (42-75)
[2018-05-24] MEDS: METOPROLOL TARTRATE 50 MG TABLET PO SCH ×2 (06:02→17:12)
[2018-05-24] MEDS: HEPARIN 5,000 UNITS/ML, 1ML SQ SCH ×2 (06:02→17:12)
[2018-05-24] MEDS: SODIUM CHLORIDE 0.45% 1,000 ML IV SCH ×2 (06:02→22:00)
[2018-05-24 07:48] VITALS: BP 133/77
[2018-05-24] MEDS: AMLODIPINE 5 MG TABLET PO SCH ×2 (08:18→21:06)
[2018-05-24] MEDS: ZONISAMIDE 50 MG CAPSULE PO SCH (08:18)
[2018-05-24] MEDS: MIRTAZAPINE 30 MG TAB.RAPDIS PO SCH (08:18)
[2018-05-24] MEDS: METOCLOPRAMIDE 10MG TABLET PO SCH ×2 (08:18→21:07)
[2018-05-24] MEDS: INSULIN GLARGINE 100 UNITS/ML, PEN SQ-INSULIN SCH ×2 (08:50→21:08)
[2018-05-24] MEDS: CEFTRIAXONE 1,000 MG in SODIUM CHLORIDE 0.9% 50 ML IV SCH (12:34)
[2018-05-24] MEDS ORDERED: LOPERAMIDE 2 MG CAPSULE PO PRN (14:30)
[2018-05-24 15:07] VITALS: BP 108/70
[2018-05-24 18:48] VITALS: BP 128/73
[2018-05-25] MEDS: HEPARIN 5,000 UNITS/ML, 1ML SQ SCH ×3 (01:20→17:44)
[2018-05-25 01:46] VITALS: BP 112/70
[2018-05-25] MEDS: METRONIDAZOLE PMX 500MG/100ML 100 ML IV SCH ×3 (03:17→20:06)
[2018-05-25] MEDS: METOPROLOL TARTRATE 50 MG TABLET PO SCH ×2 (06:11→17:40)
[2018-05-25] MEDS: INSULIN LISPRO 100 UNITS/ML, PEN SQ-INSULIN SCH ×4 (07:00→20:08)
[2018-05-25 07:25] LABS: BASOPHILS # (AUTO) 0.03 x10^3/uL (0-0.1); BASOPHILS % (AUTO) 0 % (0-1); EOSINOPHILS # (AUTO) 0.08 x10^3/uL (0-0.4); EOSINOPHILS % (AUTO) 1 % (1-7); LYMPHOCYTES % (AUTO) 37 % (22-44); MD NO; MEAN CORPUSCULAR HEMOGLOBIN 30.5 pg (27.0-34.8); MEAN CORPUSCULAR HGB CONC 33.6 g/dL (32.4-35.8); MEAN CORPUSCULAR VOLUME 90.7 fL (80-100); MEAN PLATELET VOLUME 8.9 fL (7.4-10.4); MONOCYTES # (AUTO) 0.72 x10^3/uL (0.2-0.8); MONOCYTES % (AUTO) 6 % (2-9); NEUTROPHILS # (AUTO) 6.21 x10^3/uL (1.8-6.8); NEUTROPHILS % (AUTO) 55 % (42-75); PLATELET COUNT 271 x10^3/uL (130-400); RED BLOOD COUNT 3.97 x10^6/uL (3.82-5.3); RED CELL DISTRIBUTION WIDTH 13.3 % (9.6-15.2)
[2018-05-25 07:33] LABS: ANION GAP 10 mmol/L (5-15); CALCIUM 7.9 mg/dL (8.5-10.1); CHLORIDE 112 mmol/L (98-107)
[2018-05-25] MEDS: SODIUM CHLORIDE 0.45% 1,000 ML IV SCH ×3 (08:00→21:41)
[2018-05-25 08:27] VITALS: BP 136/78
[2018-05-25] MEDS: INSULIN GLARGINE 100 UNITS/ML, PEN SQ-INSULIN SCH ×2 (10:32→20:07)
[2018-05-25] MEDS: ZONISAMIDE 50 MG CAPSULE PO SCH (10:32)
[2018-05-25] MEDS: METOCLOPRAMIDE 10MG TABLET PO SCH ×2 (10:33→20:05)
[2018-05-25] MEDS: AMLODIPINE 5 MG TABLET PO SCH ×2 (10:33→20:04)
[2018-05-25] MEDS: MIRTAZAPINE 30 MG TAB.RAPDIS PO SCH (10:33)
[2018-05-25] MEDS: CEFTRIAXONE 1,000 MG in SODIUM CHLORIDE 0.9% 50 ML IV SCH (13:10)
[2018-05-25 14:00] VITALS: BP 153/78
[2018-05-25 17:39] VITALS: BP 167/83
[2018-05-25 20:16] VITALS: BP 147/74
[2018-05-26 02:21] VITALS: BP 152/80
[2018-05-26] MEDS: HEPARIN 5,000 UNITS/ML, 1ML SQ SCH (02:39)
[2018-05-26] MEDS: METRONIDAZOLE PMX 500MG/100ML 100 ML IV SCH (04:11)
[2018-05-26 05:21] VITALS: BP 154/79
[2018-05-26] MEDS: METOPROLOL TARTRATE 50 MG TABLET PO SCH (05:22)
[2018-05-26 06:25] VITALS: BP 138/70
[2018-05-26] MEDS: INSULIN LISPRO 100 UNITS/ML, PEN SQ-INSULIN SCH (07:00)
[2018-05-26] MEDS: SODIUM CHLORIDE 0.45% 1,000 ML IV SCH (08:00)
[2018-05-26] MEDS: MIRTAZAPINE 30 MG TAB.RAPDIS PO SCH (08:33)
[2018-05-26] MEDS: METOCLOPRAMIDE 10MG TABLET PO SCH (08:33)
[2018-05-26] MEDS: AMLODIPINE 5 MG TABLET PO SCH (08:33)
[2018-05-26] MEDS: ZONISAMIDE 50 MG CAPSULE PO SCH (08:33)
[2018-05-26] MEDS ORDERED: INSU100I13 SQ-INSULIN (08:36)
[2018-05-26] MEDS ORDERED: INSU100I11 SQ-INSULIN (08:36)
[2018-05-26] MEDS: INSULIN GLARGINE 100 UNITS/ML, PEN SQ-INSULIN SCH (08:41)
== END 2018-05-26 10:20 | disposition home or self-care (01) | DRG 304 ==
LOC: ED 20:17 → EDIP 20:30 → 4EST 22:34 → DCLOUNGE 05-26 10:07
PROVIDERS: ADMIT Hospitalist; ATTEND Hospitalist
PROC: 0T9B70Z Drainage of Bladder with Drainage Device, Via Natural or Artificial Opening (ICD-10-PCS; principal; 2018-05-21)
DX: I16.0 Hypertensive urgency (principal); N17.0 Acute kidney failure with tubular necrosis; E87.2 Acidosis; E11.43 Type 2 diabetes mellitus with diabetic autonomic (poly)neuropathy; K21.9 Gastro-esophageal reflux disease without esophagitis; E11.22 Type 2 diabetes mellitus with diabetic chronic kidney disease; N18.9 Chronic kidney disease, unspecified; E11.65 Type 2 diabetes mellitus with hyperglycemia; J45.909 Unspecified asthma, uncomplicated; E66.9 Obesity, unspecified; E86.0 Dehydration; K31.84 Gastroparesis; D72.829 Elevated white blood cell count, unspecified; E87.8 Other disorders of electrolyte and fluid balance, not elsewhere classified; E11.21 Type 2 diabetes mellitus with diabetic nephropathy; G89.29 Other chronic pain; I13.10 Hypertensive heart and chronic kidney disease without heart failure, with stage 1 through stage 4 chronic kidney disease, or unspecified chronic kidney disease; G40.909 Epilepsy, unspecified, not intractable, without status epilepticus; E78.5 Hyperlipidemia, unspecified; Z86.718 Personal history of other venous thrombosis and embolism; Z98.49 Cataract extraction status, unspecified eye; Z90.49 Acquired absence of other specified parts of digestive tract; Z79.4 Long term (current) use of insulin; Z86.73 Personal history of transient ischemic attack (TIA), and cerebral infarction without residual deficits; Z86.711 Personal history of pulmonary embolism; Z90.710 Acquired absence of both cervix and uterus; Z68.30 Body mass index [BMI] 30.0-30.9, adult; Z88.5 Allergy status to narcotic agent; Z82.49 Family history of ischemic heart disease and other diseases of the circulatory system; Z83.3 Family history of diabetes mellitus
CPT/HCPCS: 36415; 36600; 84145; 87046; 87427; 99285; S0028; 71046; 74176; 80048; 80053; 81001; 82010; 82800; 82803; 82962; 83036; 83605; 83690; 85025; 87040; 87086; 87324; 87493; 89055; 96361; 96372; 96374; 96375; G0378; J0696; J1644; J2550; J3486; J0360; J1815; J2765; J7030

== ENCOUNTER 2018-10-26 16:58 | Emergency (ER) | payer MEDICAID ==
[~2018-10-26] VITALS: Ht 175.3 cm; Wt 95.0 kg
[~2018-10-26 16:58] MED LIST changes: +AMLO-150 PO; -AMLO5TAB7 PO; -GEMF600T4 PO; +GEMF600T8 PO; +INSU100I11 SQ-INSULIN; +INSU100I13 SQ-INSULIN; +METO5TAB57 PO; +MIRT30TA97 PO; +ZONI100C2 PO
--- NOTE | 2018-10-26 17:09 | NUR ---
BIB [facility] FOR N/V/D, CHILLS, INTERMITTENT FEVER, COUGH AND ABD "BURNING" X5 DAYS. PT UNABLE TO TAKE MEDS SINCE SATURDAY. GLUCOSE UPON ARRIVAL 428. CONNECTED TO MONITORS. VSS. NO NEEDS AT THIS TIME. AWAITING MD ASSESSMENT.
[2018-10-26] MEDS ORDERED: MAALOX/HYOSCYAMINE/LIDOCAINE 45 ML BTL ONE (17:51)
[2018-10-26] MEDS ORDERED: ONDANSETRON 2MG/ML, 2ML ONE ×2 (17:51→18:45)
[2018-10-26] MEDS ORDERED: MAALOX/HYOSCYAMINE/LIDOCAINE 45 ML BTL PO ONE (18:00)
[2018-10-26] MEDS ORDERED: ONDANSETRON 2MG/ML, 2ML IVPush ONE (18:00)
[2018-10-26] MEDS ORDERED: SODIUM CHLORIDE 0.9% 1,000ML IVBOLUS ONE (18:00)
--- NOTE | 2018-10-26 18:20 | NUR ---
pt refusing iv insertion at this time.
[2018-10-26 18:44] LABS: PH, VENOUS 7.355 pH (7.320-7.420)
[2018-10-26 18:46] LABS: BASOPHILS # (AUTO) 0.02 x10^3/uL (0-0.1); BASOPHILS % (AUTO) 0 % (0-1); EOSINOPHILS # (AUTO) 0.01 x10^3/uL (0-0.4); EOSINOPHILS % (AUTO) 0 % (1-7); LYMPHOCYTES # (AUTO) 1.96 x10^3/uL (1-3.4); LYMPHOCYTES % (AUTO) 25 % (22-44); MD NO; MEAN CORPUSCULAR HEMOGLOBIN 31.4 pg (27.0-34.8); MEAN CORPUSCULAR HGB CONC 33.7 g/dL (32.4-35.8); MEAN CORPUSCULAR VOLUME 93.3 fL (80-100); MEAN PLATELET VOLUME 9.8 fL (7.4-10.4); MONOCYTES # (AUTO) 0.56 x10^3/uL (0.2-0.8); MONOCYTES % (AUTO) 7 % (2-9); NEUTROPHILS # (AUTO) 5.25 x10^3/uL (1.8-6.8); NEUTROPHILS % (AUTO) 67 % (42-75); O2 FLOW ROOM AIR L/min; PLATELET COUNT 276 x10^3/uL (130-400); RED BLOOD COUNT 4.77 x10^6/uL (3.82-5.3); RED CELL DISTRIBUTION WIDTH 13.8 % (9.6-15.2)
[2018-10-26 18:55] LABS: ALANINE AMINOTRANSFERASE 13 U/L (12-78); ANION GAP 7 mmol/L (5-15); CALCIUM 8.7 mg/dL (8.5-10.1); CHLORIDE 105 mmol/L (98-107); CREATININE 2.17 mg/dL (0.55-1.02)
[2018-10-26 18:59] LABS: ALKALINE PHOSPHATASE 132 U/L (45-117); BILIRUBIN,TOTAL 0.2 mg/dL (0.2-1.0); TOTAL PROTEIN 7.5 g/dL (6.4-8.2); TROPONIN I < 0.015 ng/mL (0.000-0.045)
--- NOTE | 2018-10-26 19:06 | NUR ---
IV ESTABLISHED WITH ULTRASOUND. LABD AND UA COLLECTED. MEDICATED PER OCT. HTN, WILL BE NOTIFIED. ALL OTHER VSS. NO NEEDS AT THIS TIME.
[2018-10-26 19:14] LABS: ACETONE, SERUM Small (20mg/dL) mg/dL (Negative)
[2018-10-26 19:18] LABS: MICROSCOPIC INDICATED
[2018-10-26 19:19] LABS: CULTURE INDICATED? YES
[2018-10-26] MEDS ORDERED: INSULIN REGULAR 100 UNITS/ML, 3ML VIAL SQ-INSULIN ONE (19:30)
[2018-10-26] MEDS ORDERED: INSULIN REGULAR 100 UNITS/ML, 3ML VIAL ONE (19:56)
[2018-10-26 20:01] VITALS: BP 183/90
--- NOTE | 2018-10-26 20:03 | NUR ---
pt medicated per oct. continuing to monitor. no needs at this time.
--- NOTE | 2018-10-26 20:08 | NUR ---
md to bedside to update on poc. new order received for ct. awaiting imaging at this time.
[2018-10-26] MEDS ORDERED: MORPHINE SULFATE 4 MG/ML, 1ML ONE (20:11)
[2018-10-26] MEDS ORDERED: MORPHINE SULFATE 4 MG/ML, 1ML IVPush PRN (20:30)
== END 2018-10-26 20:58 | disposition home or self-care (01) ==
LOC: ED 17:30
DX: R10.13 Epigastric pain (principal); R11.2 Nausea with vomiting, unspecified; E86.0 Dehydration; R19.7 Diarrhea, unspecified; E86.9 Volume depletion, unspecified; E11.65 Type 2 diabetes mellitus with hyperglycemia; K21.9 Gastro-esophageal reflux disease without esophagitis; J45.909 Unspecified asthma, uncomplicated; E11.22 Type 2 diabetes mellitus with diabetic chronic kidney disease; I12.9 Hypertensive chronic kidney disease with stage 1 through stage 4 chronic kidney disease, or unspecified chronic kidney disease; N18.9 Chronic kidney disease, unspecified; E11.42 Type 2 diabetes mellitus with diabetic polyneuropathy; Z86.73 Personal history of transient ischemic attack (TIA), and cerebral infarction without residual deficits; Z88.5 Allergy status to narcotic agent
CPT/HCPCS: 36415; 71045; 74176; 80053; 81001; 82010; 82803; 82962; 83690; 84484; 85025; 87086; 93005; 96361; 96372; 96374; 96375; 99284; J2405; J7030